=== PATIENT | female | born 1955 | race Caucasian/White ===

== ENCOUNTER 2021-10-26 09:01 | Inpatient (IN) | payer MEDICARE, BC ==
[2021-10-23 14:56] LABS: BASOPHILS # (AUTO) 0.1 X10'3 (0-0.2); BASOPHILS % (AUTO) 0.9 % (0-1); EOSINOPHILS # (AUTO) 0.2 X10'3 (0-0.9); EOSINOPHILS % (AUTO) 2.1 % (0-6); LYMPHOCYTES # (AUTO) 1.8 X10'3 (1.1-4.8); LYMPHOCYTES % (AUTO) 19.8 % (21-51); MEAN CORPUSCULAR HEMOGLOBIN 27.5 PG (27.0-31.0); MEAN CORPUSCULAR HGB CONC 33.2 g/dL (33.0-36.5); MEAN CORPUSCULAR VOLUME 82.7 FL (78-98); MEAN PLATELET VOLUME 8.2 FL (7.4-10.4); MONOCYTES # (AUTO) 0.6 X10'3 (0-0.9); MONOCYTES % (AUTO) 6.8 % (2-12); NEUTROPHILS # (AUTO) 6.3 X10'3 (1.8-7.7); NEUTROPHILS % (AUTO) 70.4 % (42-75); PRE OP HEMATOCRIT 38.3 % (35.0-45.0); PRE OP HEMOGLOBIN 12.7 g/dL (12.0-16.0); PRE OP PLATELET COUNT 394 X10'3 (140-440); RED BLOOD COUNT 4.62 X10'6 (4.20-5.60); RED CELL DISTRIBUTION WIDTH 14.4 % (11.5-14.5)
[2021-10-23 15:10] LABS: ALBUMIN/GLOBULIN RATIO 1.1 (1.1-1.5); ALKALINE PHOSPHATASE 85 IU/L (46-116); BLOOD UREA NITROGEN 14 MG/DL (7-18); BUN/CREATININE RATIO 18.2 (6.6-38.0); CALCIUM 9.2 MG/DL (8.5-10.1); CHLORIDE 98 MMOL/L (99-107); CREATININE 0.77 MG/DL (0.40-0.90); PRE OP ALT 20 U/L (30-65); PRE OP ANION GAP 5 (8-16); PRE OP AST 10 U/L (10-37); PRE OP BILIRUB, TOTAL 0.3 MG/DL (0.0-1.0); PRE OP GLUCOSE 95 MG/DL (70-104); PRE OP POTASSIUM 3.9 MMOL/L (3.4-5.1); PRE OP SODIUM 131 MMOL/L (135-145); TOTAL CARBON DIOXIDE 28.3 MMOL/L (24-32); TOTAL PROTEIN 7.5 G/DL (6.4-8.2); eGFR 75 ML/MIN
[2021-10-26] VITALS (16 sets, daily range): BP systolic 104–150; BP diastolic 54–82
[~2021-10-26] VITALS: Ht 172.7 cm; Wt 110.7 kg
[~2021-10-26 09:01] MED LIST: CHOL20004 PO; ESCI20TA PO; HYDR-3972 PO; LISI1TAB53 PO; ceFAZolin inj. 2,000 MG in dextrose 5%-water 100 ML IV ONE; famotidine 20mg tablet PO ONE; ringers solution, lacted 1,000 ML IV SCH
[2021-10-26] MEDS ORDERED: HYDROcodone/acetaminophen 10/325mg tab PO ONE (10:35)
[2021-10-26] MEDS ORDERED: bacitracin 15gm ointment TP ONE ×2 (10:52→14:50)
[2021-10-26] MEDS ORDERED: ROPIVAcaine 0.5% (5mg/ml) 30ml vial ONE ×3 (11:15→14:11)
[2021-10-26] MEDS ORDERED: meperidine/PF 25mg/ml syringe IV PRN (11:35)
[2021-10-26] MEDS ORDERED: acetaminophen 1,000mg/100ml IV 100 ML IV PRN (11:35)
[2021-10-26] MEDS ORDERED: labetalol 20mg/4ml (5mg/ml) syringe IV PRN (11:35)
[2021-10-26] MEDS ORDERED: HYDROmorphone/PF 0.2 MG/ML SYRINGE IV PRN ×2 (11:35)
[2021-10-26] MEDS ORDERED: morphine 4 MG/ML inj SYRINge IV PRN (11:35)
[2021-10-26] MEDS ORDERED: ketorolac tromethamine 15mg/ml inj. IV ONE (11:35)
[2021-10-26] MEDS ORDERED: ringers solution, lacted 1,000 ML IV SCH (11:35)
[2021-10-26] MEDS ORDERED: hydrALAZINE 20mg/ml inj. IV PRN (11:35)
[2021-10-26] MEDS ORDERED: ondansetron/PF 4mg/2ml inj IV PRN (11:35)
[2021-10-26] MEDS ORDERED: morphine 2 MG/ML inj. syringe IV PRN ×2 (11:35→15:30)
[2021-10-26] MEDS ORDERED: proCHLORperazine 10 MG/2 ml inj IV PRN (11:35)
[2021-10-26 11:53] LABS: CLARITY,URINE SLIGHTLY CLOUDY (Clear); COLOR,URINE YELLOW (Yellow); GLUCOSE, URINE NEGATIVE (Neg); KETONES,URINE NEGATIVE (Neg); LEUKOCYTE ESTERASE ,URINE NEGATIVE (Neg); NITRITES, URINE NEGATIVE (Neg); OCCULT BLOOD,URINE NEGATIVE (Neg); PH,URINE 5.5 (4.8-8.0); PROTEIN,URINE NEGATIVE (Neg); UA COLLECTION TYPE VOIDED; UROBILINOGEN,URINE 0.2 E.U/dL (0.2-1.0)
[2021-10-26 12:02] LABS: MUCUS STRANDS MODERATE /LPF (Neg); SQUAMOUS EPITHELIAL CELL,UR MODERATE /LPF (FEW)
[2021-10-26 12:03] LABS: BACTERIA,URINE FEW /HPF (Neg); WBC,URINE 0-4 /HPF (0-4)
[2021-10-26] MEDS ORDERED: cloNIDine hcl/PF 100mcg/ml inj ONE (12:31)
[2021-10-26] MEDS ORDERED: midazolam 1 mg/ML 2ml injection ONE ×2 (12:34)
[2021-10-26] MEDS ORDERED: fentaNYL /PF 50mcg/ml 5ml ampule ONE (12:34)
[2021-10-26] MEDS ORDERED: acetaminophen 1000 MG/100ml vial IV ONE (12:50)
[2021-10-26] MEDS ORDERED: hydrALAZINE 20mg/ml inj. IV ONE (12:50)
[2021-10-26] MEDS ORDERED: sevoflurane 250ml liquid IH ONE (12:50)
[2021-10-26] MEDS ORDERED: ROPIVAcaine 0.2% (10 MG/5 ML) BOLUS INJECTION POPLITEAL PRN (13:35)
[2021-10-26] MEDS ORDERED: ondansetron/PF 4mg/2ml inj ONE (14:12)
[2021-10-26] MEDS ORDERED: propofol inj 20 ML IV ONE (14:12)
[2021-10-26] MEDS ORDERED: dexamethasone sod phosphate 4mg/ml inj. ONE (14:12)
[2021-10-26] MEDS ORDERED: glycopyrrolate 0.2mg/ml inj ONE (14:12)
[2021-10-26] MEDS ORDERED: neostigmine methylsulfate 1 MG/ML 10ml vial ONE (14:12)
[2021-10-26] MEDS ORDERED: rocuronium 10mg/ml inj IV ONE (14:12)
[2021-10-26] MEDS ORDERED: magnesium 2GM in 50ml NS 50 ML IV PRN (15:30)
[2021-10-26] MEDS ORDERED: magnesium hydroxide 30ml (MOM) UD suspension PO PRN (15:30)
[2021-10-26] MEDS ORDERED: potassium Cl 40MEQ/1/2NS 520ml 520 ML IV PRN (15:30)
[2021-10-26] MEDS ORDERED: magnesium Cl slow-release 64mg tablet PO PRN (15:30)
[2021-10-26] MEDS ORDERED: magnesium 4gm in 100ml NS 100 ML IV PRN (15:30)
[2021-10-26] MEDS ORDERED: POTASSIUM BICARB 20meq eff tab 20 MEQ TABLET.EFF PO PRN ×2 (15:30)
[2021-10-26] MEDS ORDERED: acetaminophen 325mg tablet PO PRN (15:30)
[2021-10-26] MEDS ORDERED: mag hydrox/Alum hydrox/simeth 30ml oral suspension PO PRN (15:30)
--- NOTE | 2021-10-26 15:44 | NUR ---
Received from OR via , accompanied by Anesthesiologist DR WEEKS and report given by Anesthesiolgist. AWAKENS TO VOICE. VITALS STABLE. DRESSING/SPLINT GI. RAMY PAIN. TOES WARM AND PINK.
[2021-10-26] MEDS ORDERED: sugammadex 200mg/2ml injection IV ONE (15:45)
[2021-10-26] MEDS: ROPIVAcaine 0.2%/PF PUMP/bolus 545 ML POPLITEAL SCH (16:02)
--- NOTE | 2021-10-26 16:39 | NUR ---
Patient in room PAS IN 900. I have received report from Daniel and had the opportunity to ask questions and awaiting patients arrival
--- NOTE | 2021-10-26 16:44 | NUR ---
Report called to receiving nurse. Transferred via [facility]ED Belongings . Special Issues communicated to receiving nurse.AWAKE AND ORIENTED. VITALS STABLE. DRESSING DI. STATES PAIN IMPROVING. TO ORTHO RM 4014A AT THIS TIME.
[2021-10-26 17:42] LABS: MAGNESIUM 1.7 MG/DL (1.5-2.4); POTASSIUM 3.8 MMOL/L (3.5-5.1)
--- NOTE | 2021-10-26 18:17 | NUR ---
patient orientated to room wedge placed for right ankle warm to touch and good capillary refil. patient educated on using onQ ball. Resting at time of report.
--- NOTE | 2021-10-26 18:18 | NUR ---
Problems reprioritized. Patient report given, questions answered & plan of care reviewed with Natalee EVERETT.
[2021-10-26] MEDS: HYDROcodone/acetaminophen 10/325mg tab PO PRN ×2 (19:02→23:05)
--- NOTE | 2021-10-26 19:28 | NUR ---
noted bleeding on bottom of dressing through doyle wrap. elevated, iced on top and bottom. will continue to assess. pt given norco for pain.
[2021-10-26] MEDS: morphine 2 MG/ML inj. syringe IV PRN (20:38)
[2021-10-26] MEDS: docusate sod 100mg capsule PO SCH (21:30)
[2021-10-26] MEDS: K and/or MAG REPLACEMENT MC SCH (22:07)
[2021-10-27] MEDS: morphine 2 MG/ML inj. syringe IV PRN ×5 (01:09→20:55)
[2021-10-27 02:00] VITALS: BP 109/60
[2021-10-27] MEDS: HYDROcodone/acetaminophen 10/325mg tab PO PRN ×6 (03:10→23:22)
[2021-10-27 06:00] VITALS: BP 137/72
--- NOTE | 2021-10-27 06:43 | NUR ---
reported to days. noted pt going to work with PT. anticipate rehab since pt has 5 steps, lives alone and is NWB. requests [facility].
--- NOTE | 2021-10-27 06:56 | NUR ---
Patient going to be seen by PT this am. I gave her Morphine 2 mg IV for 7 pain and her OnQ pump was increased from 8ml/hr to 10 ml/hr.
[2021-10-27] MEDS: K and/or MAG REPLACEMENT MC SCH ×2 (08:00→20:00)
[2021-10-27 08:12] LABS: MAGNESIUM 1.8 MG/DL (1.5-2.4); POTASSIUM 3.9 MMOL/L (3.5-5.1)
[2021-10-27] MEDS: docusate sod 100mg capsule PO SCH ×2 (08:39→20:06)
[2021-10-27 10:00] VITALS: BP 106/59
[2021-10-27 14:00] VITALS: BP 134/60
--- NOTE | 2021-10-27 14:52 | NUR ---
Patient has her lower leg dressing changed today by YOSELIN Sanabria
[2021-10-27 18:45] VITALS: BP 130/72
[2021-10-27 22:24] VITALS: BP 117/62
[2021-10-28] MEDS: morphine 2 MG/ML inj. syringe IV PRN ×3 (00:57→10:34)
[2021-10-28 02:10] VITALS: BP 105/57
[2021-10-28] MEDS: ROPIVAcaine 0.2%/PF PUMP/bolus 545 ML POPLITEAL SCH (02:43)
[2021-10-28] MEDS: HYDROcodone/acetaminophen 10/325mg tab PO PRN ×3 (03:24→13:24)
--- NOTE | 2021-10-28 05:40 | NUR ---
New ON- Q pump placed but leaking at filter below plunger, messaged pharmacy for new ON-Q.
[2021-10-28 06:00] VITALS: BP 132/65
[2021-10-28 06:22] LABS: MAGNESIUM 1.8 MG/DL (1.5-2.4); POTASSIUM 3.3 MMOL/L (3.5-5.1)
--- NOTE | 2021-10-28 06:43 | NUR ---
Problems reprioritized. Patient report given, questions answered & plan of care reviewed with Vianey EVERETT.
--- NOTE | 2021-10-28 06:45 | NUR ---
Patient in room ORTHO 4014. I have received report from Omayra/Fabienne and had the opportunity to ask questions and assume patient care.
[2021-10-28] MEDS: K and/or MAG REPLACEMENT MC SCH (08:00)
[2021-10-28] MEDS: docusate sod 100mg capsule PO SCH (08:14)
[2021-10-28 10:00] VITALS: BP 127/58
--- NOTE | 2021-10-28 13:35 | NUR ---
DC'd patient's IV, readied pt for discharge, gathered belongings and called report to Angelica Wood, spoke with Margie who took report. Pt is alert, oriented and in good spirits.
== END 2021-10-28 13:30 | DRG 494 ==
LOC: PAS 09:01 → PAS IN 09:02 → ORTHO 4S 17:00
PROVIDERS: ADMIT Podiatrist Foot & Ankle Surgery; ATTEND Podiatrist Foot & Ankle Surgery
PROC: 0SGF03Z Fusion of Right Ankle Joint with Sustained Compression Internal Fixation Device, Open Approach (ICD-10-PCS; 2021-10-26)
PROC: 0SG Lower Joints, Fusion (ICD-10-PCS; 2021-10-26)
PROC: 0SG Lower Joints, Fusion (ICD-10-PCS; 2021-10-26)
PROC: 0SPF04Z Removal of Internal Fixation Device from Right Ankle Joint, Open Approach (ICD-10-PCS; 2021-10-26)
PROC: 3E0T3BZ Introduction of Anesthetic Agent into Peripheral Nerves and Plexi, Percutaneous Approach (ICD-10-PCS; 2021-10-26)
PROC: 0SG Lower Joints, Fusion (ICD-10-PCS; principal; 2021-10-26 12:50)
DX: M96.0 Pseudarthrosis after fusion or arthrodesis (principal); M25.571 Pain in right ankle and joints of right foot
CPT/HCPCS: 36415; 73620; 76000; 80053; 81001; 82948; 83735; 84132; 85025; 87081; 87635; 93005; 97161; 97530; A4215; A4618; A6223; A6253; A6449; A7000; C1713; C9803; G0378; J0131; J0360; J0690; J0735; J1100; J2175; J2250; J2270; J2405; J2704; J2710; J2795; J3010; J3370; J3490; J7060; J7120